=== PATIENT | female | born 1935 ===

== ENCOUNTER 2019-03-28 18:51 | Emergency (ER) | payer OTHER ==
[~2019-03-28] VITALS: Ht 137.2 cm; Wt 47.2 kg
[~2019-03-28 18:51] MED LIST: CATAFLAM50 MG PO; PEPCID40 MG PO; PROTONIX40 MG PO; SYNTHROID88 MCG PO; TENORMIN25 MG PO; XANAX XR0.5 MG PO; ZANTAC150 M3 PO
[2019-03-29] MEDS ORDERED: ZYNCOF 20-400120 ML PO (03:46)
[2019-03-29] MEDS ORDERED: ZITHROMAX500 MG PO (03:47)
== END 2019-03-29 03:56 | disposition home or self-care (01) ==
LOC: ER 18:51
DX: I16.0 Hypertensive urgency (principal); I10 Essential (primary) hypertension; I50.9 Heart failure, unspecified; J06.9 Acute upper respiratory infection, unspecified; B96.0 Mycoplasma pneumoniae [M. pneumoniae] as the cause of diseases classified elsewhere